=== PATIENT | female | born 1970 | race African-American/Black ===

== ENCOUNTER 2017-06-22 12:08 | Emergency (ER) | payer BC ==
[2017-06-22 12:25] VITALS: TEMP 98.1
[2017-06-22] MEDS ORDERED: NS 1,000 ML IV ONE (12:34)
--- NOTE | 2017-06-22 12:39 | EDPHY ---
H & P Stated Complaint: traveling from [place]/foggy/tired dizzy feels heart is fast HPI/ROS: CHIEF COMPLAINT: Fatigue, myalgias, brain fog HISTORY OF PRESENT ILLNESS: This is a generally healthy 46-year-old female, in [place] from [place] for the past week, who reports 1 week of feeling " weird ". She describes fatigue, "brain fog ", diffuse myalgias, and today some shortness of breath. She feels as if her heart is beating harder than usual. She does not think she has had a rapid heart rate. She has not had fever. She denies cough or chest pain. She has not had nausea, vomiting, diarrhea, abdominal pain, or urinary symptoms. No known ill contacts. She has no history of hypertension and was seen by her primary care physician last week. At that time she was normotensive. REVIEW OF SYSTEMS: A ten point review of systems was performed and is negative with the exception of the items mentioned in the HPI. Past medical history: Mitral valve prolapse Hypothyroid Past surgical history: 1. section x2 2. Breast reduction 3. Sinus surgery Family history: Negative. Social history: She lives in [place]. She is in [place] for a course related to her job with [employer]. No tobacco or alcohol use. General Appearance: Alert. Vital signs reviewed. Blood pressure 161/102. Eyes: Pupils equal and round, no conjunctival injection, no discharge. Anicteric. ENT, Mouth: Mucous membranes are moist, no oropharyngeal erythema or edema. Neck: No lymphadenopathy, supple. Respiratory: Lungs are clear to auscultation; no wheezes, rales, or rhonchi. Cardiovascular: Regular rate and rhythm; no murmur, rub, or gallop. Gastrointestinal: Abdomen is soft and nontender, no masses or organomegaly, bowel sounds normal. Skin: Warm and dry, no rashes on exposed skin, normal color. Back: Nontender to palpation over the thoracolumbar spine. No CVAT. Extremities: No lower extremity edema, no calf tenderness or swelling. Neurological: Alert and oriented. Moving all four extremities easily and equally. Psychiatric: Normal affect. - Personal History LMP (Females 10-55): 1-7 Days Ago Current Tetanus/Diphtheria Vaccine: Yes - Medical/Surgical History Hx Asthma: No Hx Chronic Respiratory Disease: No Hx Diabetes: No Hx Cardiac Disease: Yes Hx Renal Disease: No Hx Cirrhosis: No Hx Alcoholism: No Hx HIV/AIDS: No Hx Splenectomy or Spleen Trauma: No Other PMH: mitral valve prolapse - Social History Smoking Status: Never smoked Constitutional: Initial Vital Signs Temperature (C) 36.7 C 06/22/17 12:23 Heart Rate 83 06/22/17 12:23 Respiratory Rate 20 06/22/17 12:23 Blood Pressure 161/102 H 06/22/17 12:23 O2 Sat (%) 97 06/22/17 12:23 O2 Delivery Mode Room Air Allergies/Adverse Reactions: No Known Allergies Allergy (Unverified 06/22/17 12:22) Home Medications: Medication Instructions Recorded Synthroid 06/22/17 Medical Decision Making - Diagnostics EKG Interpretation: 12 lead EKG is interpreted in Trace master View by emergency department physician. Imaging Results: Imaging Impressions Chest X-Ray 06/22/17 12:52 Impression: No acute abnormality. ED Course/Re-evaluation: I reviewed the laboratory findings, EKG findings and chest x-ray findings with the patient. I have not found evidence of a serious or life-threatening illness. I suspect a combination of adjustment to the altitude and a viral illness. I am recommending symptomatic treatment with Tylenol and ibuprofen. We reviewed the danger signs that should prompt her to return immediately. Differential Diagnosis: Shortness of breath including but not limited to pulmonary infectious process, COPD, asthma, pulmonary embolus and congestive heart failure. - Data Points Laboratory Results: Laboratory Results 06/22/17 13:05 06/22/17 13:05 06/22/17 06/22/17 13:05 13:05 WBC 4.79 10^3/uL 10^3/uL (3.80-9.50) RBC 4.10 10^6/uL L 10^6/uL (4.18-5.33) Hgb 12.6 g/dL g/dL (12.6-16.3) Hct 35.4 % L % (38.0-47.0) MCV 86.3 fL fL (81.5-99.8) MCH 30.7 pg pg (27.9-34.1) MCHC 35.6 g/dL g/dL (32.4-36.7) RDW 12.9 % % (11.5-15.2) Plt Count 237 10^3/uL 10^3/uL (150-400) MPV 9.9 fL fL (8.7-11.7) Neut % (Auto) 57.0 % % (39.3-74.2) Lymph % (Auto) 32.6 % % (15.0-45.0) Crook % (Auto) 8.1 % % (4.5-13.0) Eos % (Auto) 1.3 % % (0.6-7.6) Baso % (Auto) 0.8 % % (0.3-1.7) Nucleat RBC Rel Count 0.0 % % (0.0-0.2) Absolute Neuts (auto) 2.73 10^3/uL 10^3/uL (1.70-6.50) Absolute Lymphs (auto) 1.56 10^3/uL 10^3/uL (1.00-3.00) Absolute Monos (auto) 0.39 10^3/uL 10^3/uL (0.30-0.80) Absolute Eos (auto) 0.06 10^3/uL 10^3/uL (0.03-0.40) Absolute Basos (auto) 0.04 10^3/uL 10^3/uL (0.02-0.10) Absolute Nucleated RBC 0.00 10^3/uL 10^3/uL (0-0.01) Immature Gran % 0.2 % % (0.0-1.1) Immature Gran # 0.01 10^3/uL 10^3/uL (0.00-0.10) Sodium 140 mEq/L mEq/L (134-144) Potassium 3.9 mEq/L mEq/L (3.5-5.2) Chloride 105 mEq/L mEq/L (97-110) Carbon Dioxide 22 mEq/l mEq/l (22-31) Anion Gap 13 mEq/L mEq/L (8-16) BUN 17 mg/dL mg/dL (7-23) Creatinine 0.9 mg/dL mg/dL (0.6-1.0) Estimated GFR > 60 Glucose 83 mg/dL mg/dL (70-100) Calcium 9.9 mg/dL mg/dL (8.5-10.4) Troponin I < 0.012 ng/mL ng/mL (0.000-0.034) Medications Given: Discontinued Medications Sodium Chloride (Ns) 1,000 mls @ 0 mls/hr IV EDNOW ONE; Wide Open PRN Reason: Protocol Stop: 06/22/17 12:35 Last Admin: 06/22/17 13:02 Dose: 1,000 mls Departure - Departure Disposition: Home, Routine, Self-Care Clinical Impression: Viral syndrome Condition: Good Instructions: Viral Syndrome (ED) Additional Instructions: I suspect that your experiencing a viral syndrome in conjunction with an adjustment to the altitude. Be sure that you drink lots of fluids. Try to get plenty of rest. I recommend Tylenol and ibuprofen for symptom control. Adult Pain & Fever Control: We recommend Acetaminophen (Tylenol) and Ibuprofen (Motrin,Advil) for pain and fever control. When fever is high or pain severe, both drugs can be used at the same time, but at different intervals. Please note the time differences. Your dose is: Acetaminophen [650]mg every 4 to 6 hours Ibuprofen [400]mg every [6-8] hours with food OR Note: do not take Acetaminophen with Hydrocodone (Vicodin, Lortab) or Oycodone (Percocet). These medications also contain Acetaminophen. No more than 3000mg of Acetaminophen should be taken in 24 hours (for an adult). If you have new or concerning symptoms please return for another evaluation. Referrals: BIJAN JOSE [Other] - As per Instructions
--- NOTE | 2017-06-22 13:00 | CPEKG ---
Heart Rate: 73 RR Interval: 822 P-R Interval: 176 QRSD Interval: 106 QT Interval: 396 QTC Interval: 437 P [place]: 31 QRS [place]: 1 T Wave [place]: 28 EKG Severity - ABNORMAL ECG - EKG Impression: SINUS RHYTHM EKG Impression: INCOMPLETE RIGHT BUNDLE BRANCH BLOCK Electronically Signed By: Yanet Middleton 22-Jun-2017 17:21:28
[2017-06-22 13:14] LABS: % IMMATURE GRANULYOCYTES 0.2 % (0.0-1.1); ABSOLUTE IMMATURE GRANULOCYTES 0.01 10^3/uL (0.00-0.10); ADD DIFF? NO; ADD MORPH? NO; ADD SCAN? NO; ATYPICAL LYMPHOCYTE FLAG 0 (0-99); FRAGMENT RBC FLAG 0 (0-99); HEMATOCRIT 35.4 % (38.0-47.0); HEMOGLOBIN 12.6 g/dL (12.6-16.3); LEFT SHIFT FLG 0 (0-99); LIPEMIA HEMOLYSIS FLAG 90 (0-99); MEAN CELL HEMOGLOBIN 30.7 pg (27.9-34.1); MEAN CELL HEMOGLOBIN CONCENTR. 35.6 g/dL (32.4-36.7); MEAN CELL VOLUME 86.3 fL (81.5-99.8); MEAN PLATELET VOLUME 9.9 fL (8.7-11.7); PLATELET CLUMPS FLAG 0 (0-99); PLATELET COUNT 237 10^3/uL (150-400); RED CELL DISTRIBUTION WIDTH 12.9 % (11.5-15.2)
[2017-06-22 13:38] LABS: ANION GAP 13 mEq/L (8-16); CALCIUM 9.9 mg/dL (8.5-10.4); CARBON DIOXIDE 22 mEq/l (22-31); CHLORIDE 105 mEq/L (97-110); CREATININE 0.9 mg/dL (0.6-1.0); GLOMERULAR FILTRATION RATE > 60; GLUCOSE 83 mg/dL (70-100); POTASSIUM 3.9 mEq/L (3.5-5.2); SODIUM 140 mEq/L (134-144)
[2017-06-22 13:49] LABS: TROPONIN I < 0.012 ng/mL (0.000-0.034)
[2017-06-22 14:30] VITALS: BP 124/82; PULSE 89; RESP 16; O2SAT 100
== END 2017-06-22 14:29 | disposition home or self-care (01) ==
DX: B34.9 Viral infection, unspecified (principal); E86.9 Volume depletion, unspecified